=== PATIENT | female | born 2000 | race American Indian/Alaskan Native ===

== ENCOUNTER 2018-12-13 00:08 | Emergency (ER) | payer MEDICAID ==
[2018-12-13 01:34] VITALS: BMI 22.6
[2018-12-13 02:05] VITALS: BP 108/73; PULSE 80; RESP 18; TEMP 98.3; O2SAT 100
[2018-12-13 02:06] LABS: PH,URINE 7.5 (4.7-8.0); URINE APPEARANCE CLOUDY (CLEAR); URINE BILIRUBIN NEGATIVE (NEGATIVE); URINE BLOOD LARGE (NEGATIVE); URINE COLOR YELLOW (YELLOW); URINE GLUCOSE (UA) NEGATIVE (NEGATIVE); URINE LEUKOCYTE ESTERASE MODERATE Leu/uL (NEGATIVE); URINE PROTEIN >=300 mg/dL (<30 mg/dL)
[2018-12-13 02:25] LABS: URINE BACTERIA MOD /hpf; URINE EPITHELIAL CELLS 0 - 2 /hpf (0-5); URINE WBC TNTC /hpf (0-6)
--- NOTE | 2018-12-13 02:42 | ED PDOC ---
Arrival/HPI - General Chief Complaint: Female Genitourinary Time Seen by Provider: 12/13/18 01:39 Historian: Patient - History of Present Illness Narrative History of Present Illness (Text): 12/13/18 02:41 Yazmin Brady is a 18 year old female, with no significant past medical history, who presents to the emergency department complaining of dysuria with associated urinary frequency. Patient states symptoms are similar to previous UTI infection. Patient denies any fever, chills, chest pain, shortness of breath, nausea, vomiting, diarrhea, back pain, neck pain, headache, dizziness, or any other complaints. Symptom Onset: Gradual Symptom Course: Unchanged Activities at Onset: Light Context: Home Past Medical History - Provider Review Nursing Documentation Reviewed: Yes - Genitourinary/Gynecological Hx Urinary Tract Infection: Yes - Psychiatric Hx Substance Use: No Family/Social History - Physician Review Nursing Documentation Reviewed: Yes Family/Social History: Unknown Family HX Smoking Status: Never Smoked Hx Alcohol Use: Yes Frequency of alcohol use: Socially Hx Substance Use: No Allergies/Home Meds Allergies/Adverse Reactions: Allergies No Known Allergies Allergy (Verified 12/13/18 01:53) Review of Systems - Physician Review All systems were reviewed & negative as marked: Yes - Review of Systems Constitutional: absent: Fatigue, Fevers ENT: absent: Hearing Changes Respiratory: absent: SOB, Wheezing Cardiovascular: absent: Chest Pain Gastrointestinal: absent: Abdominal Pain Genitourinary Female: Dysuria, Frequency Skin: absent: Rash Neurological: absent: Headache, Dizziness, Speech Changes Physical Exam Vital Signs Reviewed: Yes Vital Signs Temp Pulse Resp BP Pulse Ox 12/13/18 02:04 98.3 F 80 18 108/73 100 Temperature: Afebrile Blood Pressure: Normal Pulse: Regular Respiratory Rate: Normal Appearance: Positive for: Well-Appearing Pain Distress: None Mental Status: Positive for: Alert and Oriented X 3 - Systems Exam Head: Present: Atraumatic, Normocephalic Pupils: Present: PERRL Extroacular Muscles: Present: EOMI Conjunctiva: Present: Normal Mouth: Present: Moist Mucous Membranes Neck: Present: Normal Range of Motion. No: Meningeal Signs, MIDLINE TENDERNESS, Paraspinal Tenderness Respiratory/Chest: Present: Clear to Auscultation, Good Air Exchange. No: Respiratory Distress, Accessory Muscle Use, Wheezes Cardiovascular: Present: Regular Rate and Rhythm. No: Murmurs Abdomen: No: Tenderness, Distention, Peritoneal Signs Back: Present: Normal Inspection. No: Midline Tenderness Upper Extremity: Present: Normal Inspection. No: Cyanosis, Edema Lower Extremity: Present: Normal Inspection. No: Edema Neurological: Present: GCS=15, CN II-XII Intact, Speech Normal Skin: Present: Warm, Dry, Normal Color. No: Rashes Psychiatric: Present: Alert, Oriented x 3, Normal Insight, Normal Concentration Medical Decision Making ED Course and Treatment: 12/13/18 03:20 Impression: 18 year old female complaining of dysuria and urinary frequency. Plan: -- Cephalexin -- Pyridium -- Urinalysis labs -- Reassess and disposition Prior Visits: Notes and results from previous visits were reviewed. Progress Notes: - Lab Interpretations Lab Results: Urine Color Yellow (YELLOW) 12/13/18 01:51 Urine Appearance Cloudy (CLEAR) 12/13/18 01:51 Urine pH 7.5 (4.7-8.0) 12/13/18 01:51 Ur Specific [place] 1.025 (1.005-1.035) 12/13/18 01:51 Urine Protein >=300 mg/dL (<30 mg/dL) H 12/13/18 01:51 Urine Glucose (UA) Negative mg/dL (NEGATIVE) 12/13/18 01:51 Urine Ketones Negative mg/dL (NEGATIVE) 12/13/18 01:51 Urine Blood Large (NEGATIVE) H 12/13/18 01:51 Urine Nitrate Positive (NEGATIVE) H 12/13/18 01:51 Urine Bilirubin Negative (NEGATIVE) 12/13/18 01:51 Urine Urobilinogen 1.0 E.U./dL (<1 E.U./dL) H 12/13/18 01:51 Ur Leukocyte Esterase Moderate Edin/uL (NEGATIVE) H 12/13/18 01:51 Urine RBC 10 - 15 /hpf (0-2) H 12/13/18 01:51 Urine WBC Tntc /hpf (0-6) H 12/13/18 01:51 Ur Epithelial Cells 0 - 2 /hpf (0-5) 12/13/18 01:51 Urine Bacteria Mod /hpf (NONE) 12/13/18 01:51 - Scribe Statement The provider has reviewed the documentation as recorded by the Scribe Catherine Escobar training under Alissa Rogers All medical record entries made by the Kevon were at my direction and personally dictated by me. I have reviewed the chart and agree that the record accurately reflects my personal performance of the history, physical exam, medical decision making, and the department course for this patient. I have also personally directed, reviewed, and agree with the discharge instructions and disposition. Disposition/Present on Arrival - Present on Arrival Any Indicators Present on Arrival: No History of DVT/PE: No History of Uncontrolled Diabetes: No Urinary Catheter: No History of Decub. Ulcer: No History Surgical Site Infection Following: None - Disposition Have Diagnosis and Disposition been Completed?: Yes Diagnosis: UTI (urinary tract infection) Disposition: HOME/ ROUTINE Disposition Time: 02:52 Patient Plan: Discharge Patient Problems: Current Active Problems Problem Status Onset UTI (urinary tract infection) Acute Condition: GOOD Discharge Instructions (ExitCare): Urinary Tract Infection, Adult (DC) Additional Instructions: Drink plenty of liquids/take meds as prescribed/follow up with your doctor this week Prescriptions: Cephalexin [cephalexin] 500 mg PO BID #10 cap Phenazopyridine [Pyridium] 200 mg PO TID #15 tab Forms: [employer] (Cuban)
== END 2018-12-13 03:00 | disposition home or self-care (01) ==
LOC: ED 00:08
DX: N39.0 Urinary tract infection, site not specified (principal)